=== PATIENT | female | born 1950 | race Caucasian/White ===

== ENCOUNTER → 2019-01-15 09:44 | Outpatient (CLI) | payer MEDICARE, OTHER, SELFPAY ==
--- NOTE | 2019-01-15 15:43 | NEURO ---
NCS and/or EMG Patient Report HPI: Patient is a 68-year-old female who presented with stiffness in her hands and fingers for years as well as numbness and tingling in fingers of both hands as well as difficulty with the movements and holding things from both hands. Patient also had an EMG/ nerve conduction study of bilateral upper extremities spine done on which showed evidence of mild bilateral median mononeuropathy due to carpal tunnel syndrome. Physical Exam: Physical exam showed mild tenderness at both wrists. Tinel's sign is positive at both wrists. Mild sensory deficit in both hand fingers. Findings: 1. There is prolongation of distal latencies of right and left median sensory nerve response 2. There is prolongation of distal latency of right ulnar sensory nerve response. 3. Left ulnar sensory nerve response was non-recordable. 4. There is borderline prolongation of distal latency of the right median motor nerve response. 5. Normal right and left ulnar motor nerve conduction studies. 6. There is evidence of reduced amplitudes of CMAPS of left ulnar proximal and distal motor nerve responses. Impression: 1. Findings are consistent with moderately severe right median mononeuropathy and mild left median mononeuropathy at wrist due to carpal tunnel syndrome. Findings are slightly worse as compared with an EMG/ nerve conduction study from 09/30/[address] Card 2. Findings are also consistent with bilateral ulnar sensory neuropathy. Recommendation: 1.Patient recommended to wear both hand splints as much as possible 2. Patient also recommended to avoid repetitive hand movements and heavy lifting from both hands 3. Patient will need surgical release of bilateral carpal tunnel syndrome if symptoms does not improve.
== END ==
PROVIDERS: Family Provider Internal Medicine; PCP Internal Medicine; Referring Provider Internal Medicine Rheumatology; Visit Provider Internal Medicine Rheumatology
DX: R20.2 Paresthesia of skin (principal)
CPT/HCPCS: 95886; 95912